=== PATIENT | female | born 1970 | race Asian ===

== ENCOUNTER 2018-12-12 11:27 | Day surgery (SDC) | payer BC ==
[~2018-12-12] VITALS: Ht 157.5 cm; Wt 69.3 kg
[~2018-12-12 11:27] MED LIST: AMLODIPINE; HCTZ
[2018-12-12 12:10] VITALS: Ht 157.5 cm; Wt 69.3 kg
[2018-12-12] MEDS ORDERED: PROPOFOL 20 ML ONE ×2 (15:23→15:47)
[2018-12-12 16:19] VITALS: BP 127/75; RESP 15
== END 2018-12-12 17:37 | disposition home or self-care (01) ==
LOC: GIL 11:27
PROVIDERS: ATTEND Internal Medicine Gastroenterology
DX: Z12.11 Encounter for screening for malignant neoplasm of colon (principal); I10 Essential (primary) hypertension
CPT/HCPCS: 84703